=== PATIENT | female | born 1995 | race Two or more races ===

== ENCOUNTER 2022-09-16 06:08 | Day surgery (SDC) | payer OTHER ==
[~2022-09-16 06:08] MED LIST: ARMOUR THYROID15 MG PO
[2022-09-16] MEDS ORDERED: NAPR500T14 PO (11:20)
[2022-09-16] MEDS ORDERED: MORGIDOX100 MG PO (11:20)
== END 2022-09-16 16:40 | disposition home or self-care (01) ==
LOC: CIR.AMB 06:08
PROVIDERS: ATTEND Obstetrics & Gynecology
DX: N84.0 Polyp of corpus uteri (principal); D25.0 Submucous leiomyoma of uterus; N92.0 Excessive and frequent menstruation with regular cycle; Z20.822 Contact with and (suspected) exposure to COVID-19; N91.1 Secondary amenorrhea; I10 Essential (primary) hypertension